=== PATIENT | female | born 1980 | race Two or more races ===

== ENCOUNTER 2017-08-23 22:44 | Emergency (ER) | payer SELFPAY ==
[~2017-08-23] VITALS: Ht 170.2 cm; Wt 79.0 kg
[2017-08-23] MEDS ORDERED: HYDR-309 PO (22:51)
[2017-08-23] MEDS ORDERED: TRAM50TA4 PO (22:51)
[2017-08-23] MEDS ORDERED: GABA-529 PO (22:51)
[2017-08-23] MEDS ORDERED: ONDANSETRON HCL 4 MG/2 ML VIAL IM ONE (23:45)
[2017-08-23] MEDS ORDERED: HYDROmorphone 2 MG/ML SYRINGE IM ONE (23:45)
[2017-08-24 00:24] VITALS: BP 122/79
== END 2017-08-24 00:28 | disposition home or self-care (01) ==
LOC: EMS 22:46
DX: M54.42 Lumbago with sciatica, left side (principal); Z88.2 Allergy status to sulfonamides; R11.2 Nausea with vomiting, unspecified
CPT/HCPCS: 96372; 99284; J1170; J2405

== ENCOUNTER 2017-09-04 06:05 | Emergency (ER) | payer SELFPAY ==
[~2017-09-04] VITALS: Ht 172.7 cm; Wt 100.0 kg
[~2017-09-04 06:05] MED LIST: GABA-529 PO; HYDR-309 PO; TRAM50TA4 PO
[2017-09-04] MEDS ORDERED: OMEP20 PO (06:09)
[2017-09-04] MEDS ORDERED: HYDROmorphone 2 MG/ML SYRINGE IM ONE (06:45)
[2017-09-04 07:16] VITALS: BP 126/99
== END 2017-09-04 07:47 | disposition home or self-care (01) ==
LOC: EMS 06:06
DX: M54.5 Low back pain (principal); Z88.8 Allergy status to other drugs, medicaments and biological substances
CPT/HCPCS: 96372; 99283; J1170